=== PATIENT | male | born 1965 | race African-American/Black ===

== ENCOUNTER 2016-11-26 04:01 | Emergency (ER) | payer BC ==
[~2016-11-26] VITALS: Ht 177.8 cm; Wt 72.7 kg
[2016-11-26 04:01] VITALS: BP 170/103
[~2016-11-26 04:01] MED LIST: TRAZ100T15 PO
[2016-11-26] MEDS ORDERED: SODIUM CHLORIDE 0.9% 1,000ML IVBOLUS ONE ×2 (04:30→05:00)
[2016-11-26] MEDS ORDERED: SODIUM CHLORIDE FLUSH 10ML SYR IVF ONE (04:30)
[2016-11-26] MEDS ORDERED: MORPHINE SULFATE 4 MG/ML, 1ML ONE (04:40)
[2016-11-26] MEDS ORDERED: ONDANSETRON 2MG/ML, 2ML ONE (04:40)
[2016-11-26] MEDS ORDERED: THIAMINE 100MG TABLET ONE (04:58)
[2016-11-26] MEDS ORDERED: THIAMINE 100MG TABLET PO ONE (05:00)
[2016-11-26] MEDS ORDERED: ONDANSETRON 2MG/ML, 2ML IVPush ONE (05:00)
[2016-11-26] MEDS ORDERED: MORPHINE SULFATE 4 MG/ML, 1ML IVPush PRN (05:00)
[2016-11-26 05:01] LABS: BLOOD UREA NITROGEN 12 mg/dL (7-18)
[2016-11-26 05:05] LABS: ASPARTATE AMINO TRANSFERASE 288 U/L (15-37)
[2016-11-26] MEDS ORDERED: HYDROmorphone 1 MG/ML, 1ML ONE (06:15)
[2016-11-29 17:08] LABS: DIFF TOTAL CELLS COUNTED 100 CELL DIFF
[2016-11-29 17:09] LABS: LARGE PLATELETS 1+; VERIFY COUNTS? YES
== END 2016-11-26 06:00 ==
LOC: ED 04:51
DX: B17.9 Acute viral hepatitis, unspecified (principal); F10.280 Alcohol dependence with alcohol-induced anxiety disorder; F17.210 Nicotine dependence, cigarettes, uncomplicated
CPT/HCPCS: 36415; 80053; 83690; 85025; 96374; 99284; J2405; J7030

== ENCOUNTER 2017-06-25 23:51 | Emergency (ER) | payer BC ==
[~2017-06-25] VITALS: Ht 177.8 cm; Wt 76.9 kg
[2017-06-26] MEDS ORDERED: LORazepam 2 MG/ML, 1ML IVPush ONE (00:30)
[2017-06-26] MEDS ORDERED: FAMOTIDINE 20 MG/2 ML IVP ONE (00:30)
[2017-06-26] MEDS ORDERED: SODIUM CHLORIDE FLUSH 10ML SYR IVF ONE (00:30)
[2017-06-26] MEDS ORDERED: SODIUM CHLORIDE 0.9% 1,000ML IVBOLUS ONE (00:30)
[2017-06-26] MEDS ORDERED: ONDANSETRON 2MG/ML, 2ML IVPush ONE (00:30)
[2017-06-26 00:33] LABS: MEAN CORPUSCULAR HEMOGLOBIN 30.4 pg (27.5-34.5); MEAN CORPUSCULAR HGB CONC 34.6 g/dL (33.2-36.2); MEAN CORPUSCULAR VOLUME 87.7 fL (81-97); MEAN PLATELET VOLUME 10.4 fL (7.4-10.4); PLATELET COUNT 212 x10^3/uL (130-400); RED BLOOD COUNT 4.63 x10^6/uL (4.38-5.82); RED CELL DISTRIBUTION WIDTH 14.7 % (9.4-14.8)
[2017-06-26 00:39] LABS: ALBUMIN 2.7 g/dL (3.4-5.0); ANION GAP 14 mmol/L (5-15); CALCIUM 6.5 mg/dL (8.5-10.1); CHLORIDE 101 mmol/L (98-107); CREATININE 1.44 mg/dL (0.7-1.3)
[2017-06-26 00:48] LABS: ALKALINE PHOSPHATASE 114 U/L (45-117); BILIRUBIN,TOTAL 1.8 mg/dL (0.2-1.0)
[2017-06-26 00:49] LABS: MD YES
[2017-06-26 00:52] LABS: <PLATELET ESTIMATE> ADEQUATE; <RBC MORPHOLOGY> NORMAL; BASOS#(MANUAL) 0.08 x10^3/uL (0-0.1); BASOS% (MANUAL) 1 % (0-1); LARGE PLATELETS 1+; LYMPH#(MANUAL) 2.46 x10^3/uL (1-3.4); LYMPHS% (MANUAL) 30 % (22-44); MONOS#(MANUAL) 0.08 x10^3/uL (0.3-2.7); MONOS% (MANUAL) 1 % (2-9); SEG#(MANUAL) 5.58 x10^3/uL (1.8-6.8); SEGS% (MANUAL) 68 % (42-75)
[2017-06-26 01:40] LABS: ALANINE AMINOTRANSFERASE 191 U/L (12-78); TOTAL PROTEIN 7.2 g/dL (6.4-8.2)
[2017-06-26] MEDS ORDERED: ONDANSETRON 2MG/ML, 2ML ONE (04:02)
[2017-06-26] MEDS ORDERED: FAMOTIDINE 20 MG/2 ML ONE (04:03)
[2017-06-26] MEDS ORDERED: LORazepam 2 MG/ML, 1ML ONE (04:03)
[2017-06-26] MEDS ORDERED: HYDROmorphone 2 MG/ML, 1ML IVPush STA (04:23)
[2017-06-26] MEDS ORDERED: HYDROmorphone 2 MG/ML, 1ML ONE (04:26)
[2017-06-26 05:01] VITALS: BP 123/81
== END 2017-06-26 05:03 | disposition home or self-care (01) ==
LOC: ED 06-26 04:54
DX: K29.20 Alcoholic gastritis without bleeding (principal); Z72.9 Problem related to lifestyle, unspecified; I10 Essential (primary) hypertension; F19.10 Other psychoactive substance abuse, uncomplicated; I48.91 Unspecified atrial fibrillation; K85.90 Acute pancreatitis without necrosis or infection, unspecified
CPT/HCPCS: 36415; 80053; 83690; 85025; 93005; 96361; 96374; 96375; 99285; J1170; J2060; J2405; J7030; S0028

== ENCOUNTER 2017-07-18 06:48 | Emergency (ER) | payer BC ==
[~2017-07-18] VITALS: Ht 177.8 cm; Wt 72.1 kg
[2017-07-18] MEDS ORDERED: SODIUM CHLORIDE 0.9% 1,000 ML IV ONE (07:19)
[2017-07-18] MEDS ORDERED: FAMOTIDINE 20 MG/2 ML IVP ONE (07:30)
[2017-07-18] MEDS ORDERED: ONDANSETRON 2MG/ML, 2ML IVPush ONE (07:30)
[2017-07-18] MEDS ORDERED: SODIUM CHLORIDE 0.9% 1,000ML IVBOLUS ONE ×2 (07:30→11:00)
[2017-07-18] MEDS ORDERED: LORazepam 2 MG/ML, 1ML IVPush ONE (07:30)
[2017-07-18] MEDS ORDERED: SODIUM CHLORIDE FLUSH 10ML SYR IVF ONE (07:30)
[2017-07-18] MEDS ORDERED: ONDANSETRON 2MG/ML, 2ML ONE (08:05)
[2017-07-18] MEDS ORDERED: LORazepam 2 MG/ML, 1ML ONE (08:06)
[2017-07-18] MEDS ORDERED: FAMOTIDINE 20 MG/2 ML ONE (08:06)
[2017-07-18 08:45] LABS: ALBUMIN 2.6 g/dL (3.4-5.0); ANION GAP 22 mmol/L (5-15); CALCIUM 7.6 mg/dL (8.5-10.1); CHLORIDE 99 mmol/L (98-107); CREATININE 1.59 mg/dL (0.7-1.3)
[2017-07-18 08:48] LABS: ALKALINE PHOSPHATASE 219 U/L (45-117); BILIRUBIN,TOTAL 2.5 mg/dL (0.2-1.0); MEAN CORPUSCULAR HGB CONC 32.6 g/dL (33.2-36.2); MEAN CORPUSCULAR VOLUME 89.1 fL (81-97); MEAN PLATELET VOLUME 9.7 fL (7.4-10.4); PLATELET COUNT 170 x10^3/uL (130-400); RED BLOOD COUNT 4.68 x10^6/uL (4.38-5.82); RED CELL DISTRIBUTION WIDTH 15.9 % (9.4-14.8); TOTAL PROTEIN 6.9 g/dL (6.4-8.2)
[2017-07-18 08:51] LABS: ALANINE AMINOTRANSFERASE 372 U/L (12-78)
[2017-07-18 09:00] LABS: MD YES
[2017-07-18] MEDS ORDERED: DICYCLOMINE 10 MG/ML, 2ML IM ONE (09:00)
[2017-07-18 09:19] LABS: LYMPH#(MANUAL) 0.55 x10^3/uL (1-3.4); LYMPHS% (MANUAL) 7 % (22-44); MONOS#(MANUAL) 0.39 x10^3/uL (0.3-2.7); MONOS% (MANUAL) 5 % (2-9)
[2017-07-18 09:21] LABS: BASOS#(MANUAL) 0.08 x10^3/uL (0-0.1); BASOS% (MANUAL) 1 % (0-1); SEG#(MANUAL) 6.79 x10^3/uL (1.8-6.8); SEGS% (MANUAL) 87 % (42-75)
[2017-07-18 09:22] LABS: ANISOCYTOSIS 1+; PAPPENHEIMER BODIES 1+
[2017-07-18 09:23] LABS: <PLATELET ESTIMATE> ADEQUATE; <PLT MORPHOLOGY> NORMAL PLT MORPH
[2017-07-18] MEDS ORDERED: MAALOX/HYOSCYAMINE/LIDOCAINE 45 ML BTL PO ONE (10:00)
[2017-07-18] MEDS ORDERED: DICYCLOMINE 10 MG/ML, 2ML ONE (10:15)
[2017-07-18] MEDS ORDERED: MAALOX/HYOSCYAMINE/LIDOCAINE 45 ML BTL ONE (10:15)
[2017-07-18 11:39] VITALS: BP 123/83
== END 2017-07-18 11:59 | disposition home or self-care (01) ==
LOC: ED 07:25
DX: K80.20 Calculus of gallbladder without cholecystitis without obstruction (principal); K29.20 Alcoholic gastritis without bleeding; K70.9 Alcoholic liver disease, unspecified; E86.0 Dehydration; I10 Essential (primary) hypertension
CPT/HCPCS: 36415; 74022; 76700; 80053; 83690; 85025; 93005; 96361; 96372; 96374; 96375; 99285; J0500; J2060; J2405; J7030; S0028

== ENCOUNTER 2018-06-02 23:34 | Emergency (ER) | payer BC ==
[~2018-06-02] VITALS: Ht 177.8 cm; Wt 78.0 kg
[~2018-06-02 23:34] MED LIST changes: +TRAZ-137 PO; -TRAZ100T15 PO
[2018-06-03 04:55] VITALS: BP 124/77
[2018-06-11] MEDS ORDERED: MULT1TAB90 PO (00:45)
[2018-06-11] MEDS ORDERED: NALT50TA PO (00:45)
[2018-06-11] MEDS ORDERED: DULO60CA55 PO (00:45)
[2018-06-11] MEDS ORDERED: IBUP-1222 PO (00:45)
[2018-06-11] MEDS ORDERED: TRAZ-137 PO (00:45)
[2018-06-11] MEDS ORDERED: GABA300C10 PO (00:45)
[2018-06-11] MEDS ORDERED: INDO50CA5 PO (00:45)
[2018-06-11] MEDS ORDERED: HYDR50TA13 PO (00:45)
[2018-06-11] MEDS ORDERED: ALLO100T30 PO (00:45)
[2018-06-11] MEDS ORDERED: AMLO10TA6 PO (00:45)
== END 2018-06-03 05:53 | disposition home or self-care (01) ==
LOC: ED 23:47
DX: F32.9 Major depressive disorder, single episode, unspecified (principal); F10.129 Alcohol abuse with intoxication, unspecified; I10 Essential (primary) hypertension
CPT/HCPCS: 99284

== ENCOUNTER 2018-11-19 03:06 | Emergency (ER) | payer BC ==
[~2018-11-19] VITALS: Ht 177.8 cm; Wt 74.7 kg
[~2018-11-19 03:06] MED LIST changes: +ALLO100T30 PO; +AMLO10TA8 PO; +DULO60CA55 PO; +GABA300C10 PO; +HYDR50TA13 PO; +IBUP-1222 PO; +INDO50CA5 PO; +MULT1TAB90 PO; +NALT50TA PO
[2018-11-19] MEDS ORDERED: MORPHINE SULFATE 4 MG/ML, 1ML ONE (03:37)
[2018-11-19] MEDS ORDERED: SODIUM CHLORIDE 0.9% 1,000ML IVBOLUS ONE (04:00)
[2018-11-19] MEDS ORDERED: MORPHINE SULFATE 4 MG/ML, 1ML IVPush ONE (04:00)
[2018-11-19] MEDS ORDERED: SODIUM CHLORIDE FLUSH 10ML SYR IVF ONE (04:00)
--- NOTE | 2018-11-19 04:01 | NUR ---
Pt difficult iv stick per this rn attempting 2 times. EJ established via Antony foster.
[2018-11-19 04:22] VITALS: BP 121/91
--- NOTE | 2018-11-19 04:23 | NUR ---
Pt not tolerating ej and iv fluids not infusing. Aeju at bedside for US guided iv.
[2018-11-19 04:33] LABS: BASOPHILS # (AUTO) 0.03 x10^3/uL (0-0.1); BASOPHILS % (AUTO) 0 % (0-1); EOSINOPHILS # (AUTO) 0.01 x10^3/uL (0-0.4); EOSINOPHILS % (AUTO) 0 % (1-7); LYMPHOCYTES # (AUTO) 1.48 x10^3/uL (1-3.4); LYMPHOCYTES % (AUTO) 14 % (22-44); MD NO; MEAN CORPUSCULAR HGB CONC 32.8 g/dL (33.2-36.2); MEAN CORPUSCULAR VOLUME 82.5 fL (81-97); MEAN PLATELET VOLUME 10.1 fL (7.4-10.4); MONOCYTES % (AUTO) 2 % (2-9); NEUTROPHILS # (AUTO) 8.57 x10^3/uL (1.8-6.8); NEUTROPHILS % (AUTO) 83 % (42-75); PLATELET COUNT 137 x10^3/uL (130-400); RED BLOOD COUNT 6.25 x10^6/uL (4.38-5.82); RED CELL DISTRIBUTION WIDTH 14.4 % (9.4-14.8)
[2018-11-19 04:42] LABS: ALBUMIN 3.5 g/dL (3.4-5.0); ANION GAP 14 mmol/L (5-15); CALCIUM 8.2 mg/dL (8.5-10.1); CHLORIDE 104 mmol/L (98-107)
[2018-11-19 04:46] LABS: ALANINE AMINOTRANSFERASE 50 U/L (12-78); ALKALINE PHOSPHATASE 84 U/L (45-117); BILIRUBIN,TOTAL 0.9 mg/dL (0.2-1.0); TOTAL PROTEIN 7.7 g/dL (6.4-8.2)
--- NOTE | 2018-11-19 04:56 | NUR ---
Pt resting comfortably on gurney. Nadn. No immediate concerns. Call light within reach. Awaiting lab results.
== END 2018-11-19 05:26 | disposition home or self-care (01) ==
LOC: ED 05:12
DX: K86.0 Alcohol-induced chronic pancreatitis (principal); Z72.9 Problem related to lifestyle, unspecified; F10.20 Alcohol dependence, uncomplicated; I10 Essential (primary) hypertension; F17.210 Nicotine dependence, cigarettes, uncomplicated
CPT/HCPCS: 36415; 80053; 83690; 85025; 96361; 96374; 99283; J2270; J7030

== ENCOUNTER 2018-12-07 16:23 | Emergency (ER) | payer OTHER, BC ==
[~2018-12-07] VITALS: Ht 177.8 cm; Wt 50.0 kg
--- NOTE | 2018-12-07 16:34 | NUR ---
DAVID-Mark IS AT THE BEDSIDE FOR ASSESSMENT
[2018-12-07] MEDS ORDERED: ACETAMINOPHEN 325 MG TABLET ONE ×2 (16:41→16:44)
[2018-12-07] MEDS ORDERED: METHOCARBAMOL 750 MG TABLET ONE (16:44)
[2018-12-07] MEDS ORDERED: METHOCARBAMOL 750 MG TABLET PO ONE (17:00)
[2018-12-07] MEDS ORDERED: ACETAMINOPHEN 500 MG TABLET PO ONE (17:00)
[2018-12-07 17:34] VITALS: BP 167/98
== END 2018-12-07 17:46 | disposition home or self-care (01) ==
LOC: ED 16:42
DX: M25.552 Pain in left hip (principal); I10 Essential (primary) hypertension; F41.1 Generalized anxiety disorder; F32.9 Major depressive disorder, single episode, unspecified; Z72.89 Other problems related to lifestyle
CPT/HCPCS: 99283

== ENCOUNTER 2018-12-08 13:54 | Inpatient (IN) | payer BC, OTHER ==
[~2018-12-08] VITALS: Ht 175.3 cm; Wt 77.8 kg
[2018-12-08] MEDS ORDERED: ZIPRASIDONE 20 MG INJ IM ONE ×2 (14:41→15:00)
--- NOTE | 2018-12-08 14:41 | NUR ---
PT VERY TREMULOUS, CONTINUES TO TRY TO GET OUT OF GURNEY, PT FOUND WANDERING THE HALLS STAGGERING, ASSISTED BACK TO BED. PT NOW WITH SITTER IN ROOM. DARLEEN MADE AWARE, ORDERS RECEIVED FOR JESSICA.
--- NOTE | 2018-12-08 14:50 | NUR ---
MULTIPLE PROMPTS TO HAVE THE PATIENT MOVED TO BED. PATIENT REDIRECTABLE AND COOPERATIVE BUT NEEDS ALMOST IMMEDIATE REDIRECTION AND DOES NOT SEEM TO RETAIN INFORMATION.
[2018-12-08 15:24] LABS: ALBUMIN 3.7 g/dL (3.4-5.0); ANION GAP 12 mmol/L (5-15); CALCIUM 8.4 mg/dL (8.5-10.1); CHLORIDE 111 mmol/L (98-107)
[2018-12-08 15:28] LABS: ALANINE AMINOTRANSFERASE 60 U/L (12-78); ALKALINE PHOSPHATASE 73 U/L (45-117); BILIRUBIN,TOTAL 0.9 mg/dL (0.2-1.0); CREATININE 0.97 mg/dL (0.7-1.3); TOTAL PROTEIN 7.5 g/dL (6.4-8.2)
[2018-12-08 15:39] LABS: BASOPHILS # (AUTO) 0.02 x10^3/uL (0-0.1); BASOPHILS % (AUTO) 1 % (0-1); EOSINOPHILS # (AUTO) 0.02 x10^3/uL (0-0.4); EOSINOPHILS % (AUTO) 1 % (1-7); LYMPHOCYTES # (AUTO) 1.58 x10^3/uL (1-3.4); LYMPHOCYTES % (AUTO) 35 % (22-44); MD SCAN; MEAN CORPUSCULAR HEMOGLOBIN 26.5 pg (27.5-34.5); MEAN CORPUSCULAR HGB CONC 32.7 g/dL (33.2-36.2); MEAN PLATELET VOLUME 8.7 fL (7.4-10.4); MONOCYTES # (AUTO) 0.17 x10^3/uL (0.2-0.8); MONOCYTES % (AUTO) 4 % (2-9); NEUTROPHILS % (AUTO) 60 % (42-75); PLATELET COUNT 354 x10^3/uL (130-400); RED BLOOD COUNT 5.01 x10^6/uL (4.38-5.82); RED CELL DISTRIBUTION WIDTH 15.5 % (9.4-14.8)
--- NOTE | 2018-12-08 16:00 | NUR ---
PT MUCH CALMER, SITTER AT BEDSIDE. PT GIVEN MEAL TRAY, NO OTHER NEEDS
--- NOTE | 2018-12-08 16:22 | NUR ---
REPORT GIVEN TO SISI WILLIAMSON, MERCED.
[2018-12-08] MEDS ORDERED: ACETAMINOPHEN 325 MG TABLET PO PRN (17:30)
[2018-12-08] MEDS ORDERED: POLYETHYLENE GLYCOL 17 GM PACKET PO PRN (17:30)
[2018-12-08] MEDS ORDERED: LABETALOL 5 MG/ML SYRINGE IVPush PRN (17:30)
[2018-12-08] MEDS ORDERED: LORazepam 2 MG/ML, 1ML IVPush PRN (17:30)
[2018-12-08] MEDS ORDERED: BISACODYL 10 MG SUPP PR PRN (17:30)
[2018-12-08] MEDS ORDERED: ENALAPRILAT 1.25 MG/ML, 2ML IVPush PRN (17:30)
[2018-12-08] MEDS ORDERED: ONDANSETRON 2MG/ML, 2ML IVPush PRN (17:30)
[2018-12-08] MEDS ORDERED: ONDANSETRON ODT 4 MG PO PRN (17:30)
[2018-12-08] MEDS ORDERED: DOCUSATE 100 MG CAPSULE PO PRN (17:30)
[2018-12-08] MEDS: D5%-0.45NACL+KCL 20MEQ 1,000 ML IV SCH (18:00)
[2018-12-08] MEDS: ENOXAPARIN 40 MG/0.4 ML SQ SCH (18:13)
[2018-12-08] MEDS: NICOTINE 14MG/24 HR PATCH.TD24 TD SCH (18:16)
[2018-12-08] MEDS: THIAMINE 200 MG, MVI ADULT 10 ML, FOLIC ACID 1 MG in D5%-0.9% NACL 1,000 ML IV SCH (18:28)
[2018-12-08] MEDS: LIDODERM 5% PATCH TD SCH (18:34)
[2018-12-08 19:42] VITALS: BP 118/75
[2018-12-08] MEDS: FAMOTIDINE 20 MG TABLET PO SCH (21:00)
[2018-12-08 23:42] LABS: MICROSCOPIC AUTO
[2018-12-08 23:43] LABS: CULTURE INDICATED? NO
[2018-12-08 23:51] LABS: AMPHETAMINE SCREEN, URINE Negative (Negative); BARBITURATE SCREEN, URINE Negative (Negative); BENZODIAZEPINE SCREEN, URINE Negative (Negative); CANNABINOID SCREEN, URINE Negative (Negative); COCAINE SCREEN, URINE Negative (Negative); METHADONE SCREEN, URINE Negative (Negative); OPIATE SCREEN, URINE Negative (Negative)
[2018-12-09 01:54] VITALS: BP 149/83
[2018-12-09] MEDS: THIAMINE 200 MG, MVI ADULT 10 ML, FOLIC ACID 1 MG in D5%-0.9% NACL 1,000 ML IV SCH ×2 (02:06→12:21)
[2018-12-09] MEDS: D5%-0.45NACL+KCL 20MEQ 1,000 ML IV SCH ×2 (03:23→20:11)
[2018-12-09] MEDS: LORazepam 1MG TABLET PO PRN ×5 (03:34→20:36)
[2018-12-09 04:56] LABS: CLOSTRIDIUM DIFFICILE ANTIGEN POSITIVE; CLOSTRIDIUM DIFFICILE TOXIN NEGATIVE (Negative)
[2018-12-09 06:01] LABS: MEAN CORPUSCULAR HEMOGLOBIN 26.6 pg (27.5-34.5); MEAN CORPUSCULAR VOLUME 80.7 fL (81-97); MEAN PLATELET VOLUME 9.1 fL (7.4-10.4); PLATELET COUNT 237 x10^3/uL (130-400); RED BLOOD COUNT 4.16 x10^6/uL (4.38-5.82); RED CELL DISTRIBUTION WIDTH 15.8 % (9.4-14.8)
[2018-12-09 06:06] LABS: ALBUMIN 2.9 g/dL (3.4-5.0); ANION GAP 10 mmol/L (5-15); CALCIUM 7.4 mg/dL (8.5-10.1); CHLORIDE 109 mmol/L (98-107)
[2018-12-09 06:09] LABS: ALANINE AMINOTRANSFERASE 54 U/L (12-78); ALKALINE PHOSPHATASE 57 U/L (45-117); BILIRUBIN,TOTAL 0.9 mg/dL (0.2-1.0); CREATININE 0.86 mg/dL (0.7-1.3)
[2018-12-09 06:41] LABS: MD YES
[2018-12-09 06:44] LABS: LYMPH#(MANUAL) 1.68 x10^3/uL (1-3.4); LYMPHS% (MANUAL) 39 % (22-44); MONOS#(MANUAL) 0.04 x10^3/uL (0.3-2.7); MONOS% (MANUAL) 1 % (2-9); SEG#(MANUAL) 2.58 x10^3/uL (1.8-6.8); SEGS% (MANUAL) 60 % (42-75)
[2018-12-09 06:45] LABS: ANISOCYTOSIS 1+; HYPOCHROMIA 1+; TARGET CELLS 1+
[2018-12-09 06:47] LABS: <PLATELET ESTIMATE> ADEQUATE; <PLT MORPHOLOGY> NORMAL PLT MORPH
[2018-12-09] MEDS ORDERED: POTASSIUM CHLORIDE 40 MEQ in SODIUM CHLORIDE 0.9% 500 ML IV ONE (07:30)
[2018-12-09 08:15] VITALS: BP 153/89
[2018-12-09] MEDS: MAGNESIUM SULFATE PMX 2GM/50ML 50 ML IV SCH ×2 (08:31→10:17)
[2018-12-09] MEDS: FAMOTIDINE 20 MG TABLET PO SCH ×2 (10:17→20:10)
[2018-12-09 13:20] VITALS: BP 143/89
[2018-12-09] MEDS: KETOROLAC 30 MG/1 ML IV PRN ×2 (16:00→22:08)
[2018-12-09] MEDS: ENOXAPARIN 40 MG/0.4 ML SQ SCH (17:45)
[2018-12-09] MEDS: NICOTINE 14MG/24 HR PATCH.TD24 TD SCH (17:46)
[2018-12-09] MEDS: LIDODERM 5% PATCH TD SCH (17:47)
[2018-12-09 18:42] VITALS: BP 144/95
[2018-12-10] MEDS: LORazepam 1MG TABLET PO PRN ×3 (00:51→14:30)
[2018-12-10 01:11] VITALS: BP 161/92
[2018-12-10] MEDS: D5%-0.45NACL+KCL 20MEQ 1,000 ML IV SCH ×2 (04:30→12:00)
[2018-12-10] MEDS: KETOROLAC 30 MG/1 ML IV PRN ×3 (04:30→18:19)
[2018-12-10 06:12] LABS: BASOPHILS # (AUTO) 0.02 x10^3/uL (0-0.1); BASOPHILS % (AUTO) 0 % (0-1); EOSINOPHILS # (AUTO) 0.14 x10^3/uL (0-0.4); EOSINOPHILS % (AUTO) 3 % (1-7); LYMPHOCYTES # (AUTO) 1.18 x10^3/uL (1-3.4); LYMPHOCYTES % (AUTO) 24 % (22-44); MD NO; MEAN CORPUSCULAR HEMOGLOBIN 27.3 pg (27.5-34.5); MEAN CORPUSCULAR HGB CONC 33.2 g/dL (33.2-36.2); MEAN CORPUSCULAR VOLUME 82.3 fL (81-97); MEAN PLATELET VOLUME 9.8 fL (7.4-10.4); MONOCYTES # (AUTO) 0.28 x10^3/uL (0.2-0.8); MONOCYTES % (AUTO) 6 % (2-9); NEUTROPHILS # (AUTO) 3.28 x10^3/uL (1.8-6.8); NEUTROPHILS % (AUTO) 67 % (42-75); PLATELET COUNT 193 x10^3/uL (130-400); RED BLOOD COUNT 4.35 x10^6/uL (4.38-5.82)
[2018-12-10 06:25] LABS: CHLORIDE 104 mmol/L (98-107)
[2018-12-10 06:36] LABS: ALANINE AMINOTRANSFERASE 58 U/L (12-78); ALBUMIN 3.1 g/dL (3.4-5.0); ALKALINE PHOSPHATASE 76 U/L (45-117); ANION GAP 10 mmol/L (5-15); BILIRUBIN,TOTAL 0.8 mg/dL (0.2-1.0); CALCIUM 7.7 mg/dL (8.5-10.1); CREATININE 0.76 mg/dL (0.7-1.3); TOTAL PROTEIN 6.4 g/dL (6.4-8.2)
[2018-12-10] MEDS ORDERED: MAGNESIUM SULFATE PMX 4GM/100M 100 ML IV ONE (07:30)
[2018-12-10 07:36] LABS: SICKLE CELL SCREEN POSITIVE (NEGATIVE)
[2018-12-10 07:49] VITALS: BP 155/91
[2018-12-10] MEDS ORDERED: POTASSIUM CHLORIDE 20 MEQ TAB.ER.PRT PO SCH ×2 (08:00→17:00)
[2018-12-10] MEDS: DULOXETINE 30 MG CAPSULE.DR PO SCH (08:03)
[2018-12-10] MEDS: FAMOTIDINE 20 MG TABLET PO SCH ×2 (08:03→21:15)
[2018-12-10] MEDS: AMLODIPINE 10 MG TAB PO SCH (08:03)
[2018-12-10] MEDS ORDERED: LORazepam 1MG TABLET PO PRN ×3 (08:30)
[2018-12-10] MEDS ORDERED: LORazepam 2 MG/ML, 1ML IV PRN ×3 (08:30)
[2018-12-10] MEDS: GABAPENTIN 300 MG CAPSULE PO SCH ×3 (11:03→21:15)
[2018-12-10] MEDS: ALLOPURINOL 100 MG TABLET PO SCH (11:03)
[2018-12-10 12:05] VITALS: BP 129/79
[2018-12-10] MEDS: HYDROcodone/APAP 5/325 TABLET PO PRN ×2 (13:41→21:15)
[2018-12-10] MEDS: THIAMINE 200 MG, MVI ADULT 10 ML, FOLIC ACID 1 MG in D5%-0.9% NACL 1,000 ML IV SCH (13:41)
[2018-12-10] MEDS: LIDODERM 5% PATCH TD SCH (17:38)
[2018-12-10] MEDS: ENOXAPARIN 40 MG/0.4 ML SQ SCH (17:40)
[2018-12-10] MEDS: NICOTINE 14MG/24 HR PATCH.TD24 TD SCH (17:43)
[2018-12-10 19:25] VITALS: BP 146/88
[2018-12-10] MEDS: LORazepam 2 MG/ML, 1ML IV PRN (21:15)
[2018-12-11] MEDS: LORazepam 1MG TABLET PO PRN ×3 (00:09→21:23)
[2018-12-11 01:01] VITALS: BP 148/91
[2018-12-11] MEDS: KETOROLAC 30 MG/1 ML IV PRN ×3 (01:07→22:48)
[2018-12-11] MEDS: HYDROcodone/APAP 5/325 TABLET PO PRN ×4 (02:35→21:18)
[2018-12-11] MEDS: GABAPENTIN 300 MG CAPSULE PO SCH ×4 (05:36→21:18)
[2018-12-11 06:43] LABS: MEAN CORPUSCULAR HEMOGLOBIN 27.4 pg (27.5-34.5); MEAN CORPUSCULAR HGB CONC 33.2 g/dL (33.2-36.2); MEAN CORPUSCULAR VOLUME 82.4 fL (81-97); MEAN PLATELET VOLUME 10.7 fL (7.4-10.4); PLATELET COUNT 164 x10^3/uL (130-400); RED BLOOD COUNT 4.49 x10^6/uL (4.38-5.82); RED CELL DISTRIBUTION WIDTH 14.9 % (9.4-14.8)
[2018-12-11 06:53] LABS: BASOPHILS # (AUTO) 0.01 x10^3/uL (0-0.1); BASOPHILS % (AUTO) 0 % (0-1); EOSINOPHILS # (AUTO) 0.26 x10^3/uL (0-0.4); EOSINOPHILS % (AUTO) 5 % (1-7); LYMPHOCYTES # (AUTO) 1.35 x10^3/uL (1-3.4); LYMPHOCYTES % (AUTO) 28 % (22-44); MD SCAN; MONOCYTES # (AUTO) 0.24 x10^3/uL (0.2-0.8); MONOCYTES % (AUTO) 5 % (2-9); NEUTROPHILS # (AUTO) 3.04 x10^3/uL (1.8-6.8); NEUTROPHILS % (AUTO) 62 % (42-75)
[2018-12-11 07:22] LABS: ALBUMIN 3.1 g/dL (3.4-5.0); ANION GAP 9 mmol/L (5-15); CALCIUM 7.9 mg/dL (8.5-10.1); CHLORIDE 105 mmol/L (98-107)
[2018-12-11 07:26] LABS: ALANINE AMINOTRANSFERASE 66 U/L (12-78); ALKALINE PHOSPHATASE 74 U/L (45-117); BILIRUBIN,TOTAL 0.5 mg/dL (0.2-1.0); TOTAL PROTEIN 6.7 g/dL (6.4-8.2)
[2018-12-11 07:57] VITALS: BP 144/90
[2018-12-11] MEDS ORDERED: MAGNESIUM SULFATE PMX 2GM/50ML 50 ML IV ONE (08:00)
[2018-12-11] MEDS ORDERED: ESOMEPRAZOLE 40 MG IV IVPush SCH (08:00)
[2018-12-11] MEDS: FOLIC ACID 1 MG TABLET PO SCH (09:09)
[2018-12-11] MEDS: ESOMEPRAZOLE 40 MG IV IVPush SCH ×2 (09:09→21:18)
[2018-12-11] MEDS: AMLODIPINE 10 MG TAB PO SCH (09:10)
[2018-12-11] MEDS: ALLOPURINOL 100 MG TABLET PO SCH (09:10)
[2018-12-11] MEDS: DULOXETINE 30 MG CAPSULE.DR PO SCH (09:10)
[2018-12-11] MEDS: LORazepam 0.5MG TABLET PO PRN ×2 (12:14→16:42)
[2018-12-11] MEDS: METHOCARBAMOL 500 MG TABLET PO PRN (12:14)
[2018-12-11] MEDS: THIAMINE 200 MG, MVI ADULT 10 ML, FOLIC ACID 1 MG in D5%-0.9% NACL 1,000 ML IV SCH (13:40)
[2018-12-11 14:17] VITALS: BP 141/82
[2018-12-11] MEDS: LIDODERM 5% PATCH TD SCH (16:41)
[2018-12-11] MEDS: NICOTINE 14MG/24 HR PATCH.TD24 TD SCH (16:42)
[2018-12-11] MEDS: ENOXAPARIN 40 MG/0.4 ML SQ SCH (16:42)
[2018-12-11 18:40] VITALS: BP 116/78
[2018-12-12 01:57] VITALS: BP 157/92
[2018-12-12] MEDS: HYDROcodone/APAP 5/325 TABLET PO PRN ×3 (02:06→13:19)
[2018-12-12] MEDS: LORazepam 1MG TABLET PO PRN (02:06)
[2018-12-12] MEDS: GABAPENTIN 300 MG CAPSULE PO SCH ×4 (06:00→20:35)
[2018-12-12] MEDS: LORazepam 2 MG/ML, 1ML IV PRN (06:00)
[2018-12-12 06:58] LABS: BASOPHILS # (AUTO) 0.01 x10^3/uL (0-0.1); BASOPHILS % (AUTO) 0 % (0-1); EOSINOPHILS # (AUTO) 0.14 x10^3/uL (0-0.4); EOSINOPHILS % (AUTO) 3 % (1-7); LYMPHOCYTES # (AUTO) 1.12 x10^3/uL (1-3.4); LYMPHOCYTES % (AUTO) 22 % (22-44); MD NO; MEAN CORPUSCULAR HEMOGLOBIN 27.2 pg (27.5-34.5); MEAN CORPUSCULAR HGB CONC 32.5 g/dL (33.2-36.2); MEAN CORPUSCULAR VOLUME 83.8 fL (81-97); MEAN PLATELET VOLUME 9.8 fL (7.4-10.4); MONOCYTES # (AUTO) 0.19 x10^3/uL (0.2-0.8); MONOCYTES % (AUTO) 4 % (2-9); NEUTROPHILS # (AUTO) 3.73 x10^3/uL (1.8-6.8); NEUTROPHILS % (AUTO) 72 % (42-75); PLATELET COUNT 154 x10^3/uL (130-400); RED BLOOD COUNT 4.44 x10^6/uL (4.38-5.82); RED CELL DISTRIBUTION WIDTH 15.7 % (9.4-14.8)
[2018-12-12 07:08] LABS: ANION GAP 7 mmol/L (5-15); CALCIUM 7.9 mg/dL (8.5-10.1); CHLORIDE 106 mmol/L (98-107)
[2018-12-12 07:13] LABS: ALANINE AMINOTRANSFERASE 81 U/L (12-78); ALKALINE PHOSPHATASE 69 U/L (45-117); BILIRUBIN,TOTAL 0.8 mg/dL (0.2-1.0); TOTAL PROTEIN 6.5 g/dL (6.4-8.2)
[2018-12-12 07:40] VITALS: BP 137/74
[2018-12-12] MEDS ORDERED: MAGNESIUM SULFATE 3 GM in SODIUM CHLORIDE 0.9% 100 ML IV ONE (08:00)
[2018-12-12] MEDS: KETOROLAC 30 MG/1 ML IV PRN ×2 (08:44→17:24)
[2018-12-12] MEDS: AMLODIPINE 10 MG TAB PO SCH (08:44)
[2018-12-12] MEDS: ESOMEPRAZOLE 40 MG IV IVPush SCH (08:44)
[2018-12-12] MEDS: DULOXETINE 30 MG CAPSULE.DR PO SCH (08:45)
[2018-12-12] MEDS: ALLOPURINOL 100 MG TABLET PO SCH (08:45)
[2018-12-12] MEDS: FOLIC ACID 1 MG TABLET PO SCH (08:45)
[2018-12-12] MEDS: LORazepam 0.5MG TABLET PO PRN ×2 (13:19→20:34)
[2018-12-12] MEDS: THIAMINE 200 MG, MVI ADULT 10 ML, FOLIC ACID 1 MG in D5%-0.9% NACL 1,000 ML IV SCH (13:19)
[2018-12-12 14:00] VITALS: BP 158/82
[2018-12-12] MEDS: PANTOPROZOLE 40MG TABLET PO SCH (17:24)
[2018-12-12] MEDS: ENOXAPARIN 40 MG/0.4 ML SQ SCH (17:25)
[2018-12-12] MEDS: NICOTINE 14MG/24 HR PATCH.TD24 TD SCH (17:25)
[2018-12-12] MEDS: LIDODERM 5% PATCH TD SCH (17:26)
[2018-12-12 19:50] VITALS: BP 127/82
[2018-12-12] MEDS: METHOCARBAMOL 500 MG TABLET PO PRN (20:35)
[2018-12-13 01:13] VITALS: BP 146/92
[2018-12-13] MEDS: HYDROcodone/APAP 5/325 TABLET PO PRN ×2 (01:43→20:57)
[2018-12-13] MEDS: LORazepam 0.5MG TABLET PO PRN ×3 (02:07→20:37)
[2018-12-13] MEDS: GABAPENTIN 300 MG CAPSULE PO SCH ×4 (05:53→20:57)
[2018-12-13] MEDS: PANTOPROZOLE 40MG TABLET PO SCH ×2 (05:57→18:41)
[2018-12-13 08:15] VITALS: BP 124/74
[2018-12-13] MEDS: AMLODIPINE 10 MG TAB PO SCH (08:48)
[2018-12-13] MEDS: ALLOPURINOL 100 MG TABLET PO SCH (08:48)
[2018-12-13] MEDS: DULOXETINE 30 MG CAPSULE.DR PO SCH (08:48)
[2018-12-13] MEDS: FOLIC ACID 1 MG TABLET PO SCH (08:48)
[2018-12-13] MEDS: KETOROLAC 30 MG/1 ML IV PRN (09:05)
[2018-12-13 09:28] LABS: ANION GAP 6 mmol/L (5-15); CALCIUM 8.2 mg/dL (8.5-10.1); CHLORIDE 106 mmol/L (98-107); CREATININE 0.76 mg/dL (0.7-1.3)
[2018-12-13 10:49] LABS: BASOPHILS # (AUTO) 0.02 x10^3/uL (0-0.1); BASOPHILS % (AUTO) 0 % (0-1); EOSINOPHILS # (AUTO) 0.13 x10^3/uL (0-0.4); EOSINOPHILS % (AUTO) 2 % (1-7); LYMPHOCYTES # (AUTO) 1.24 x10^3/uL (1-3.4); LYMPHOCYTES % (AUTO) 17 % (22-44); MD NO; MEAN CORPUSCULAR HEMOGLOBIN 26.7 pg (27.5-34.5); MEAN CORPUSCULAR HGB CONC 32.2 g/dL (33.2-36.2); MEAN CORPUSCULAR VOLUME 82.7 fL (81-97); MEAN PLATELET VOLUME 9.3 fL (7.4-10.4); MONOCYTES # (AUTO) 0.67 x10^3/uL (0.2-0.8); MONOCYTES % (AUTO) 9 % (2-9); NEUTROPHILS # (AUTO) 5.14 x10^3/uL (1.8-6.8); NEUTROPHILS % (AUTO) 72 % (42-75); PLATELET COUNT 152 x10^3/uL (130-400); RED BLOOD COUNT 4.26 x10^6/uL (4.38-5.82); RED CELL DISTRIBUTION WIDTH 15.8 % (9.4-14.8)
[2018-12-13] MEDS ORDERED: MAGNESIUM SULFATE 4 GM in SODIUM CHLORIDE 0.9% 100 ML IV ONE (11:00)
[2018-12-13] MEDS: THIAMINE 200 MG, MVI ADULT 10 ML, FOLIC ACID 1 MG in D5%-0.9% NACL 1,000 ML IV SCH (18:34)
[2018-12-13] MEDS: ENOXAPARIN 40 MG/0.4 ML SQ SCH (18:41)
[2018-12-13] MEDS: NICOTINE 14MG/24 HR PATCH.TD24 TD SCH (18:42)
[2018-12-13] MEDS: LIDODERM 5% PATCH TD SCH (18:42)
[2018-12-13 19:59] VITALS: BP 127/80
[2018-12-14 00:37] VITALS: BP 121/76
[2018-12-14] MEDS: LORazepam 0.5MG TABLET PO PRN (04:41)
[2018-12-14 05:30] LABS: BASOPHILS # (AUTO) 0.03 x10^3/uL (0-0.1); BASOPHILS % (AUTO) 1 % (0-1); EOSINOPHILS # (AUTO) 0.11 x10^3/uL (0-0.4); EOSINOPHILS % (AUTO) 2 % (1-7); LYMPHOCYTES # (AUTO) 1.47 x10^3/uL (1-3.4); LYMPHOCYTES % (AUTO) 28 % (22-44); MD NO; MEAN CORPUSCULAR HEMOGLOBIN 27.4 pg (27.5-34.5); MEAN CORPUSCULAR HGB CONC 32.7 g/dL (33.2-36.2); MEAN CORPUSCULAR VOLUME 83.7 fL (81-97); MEAN PLATELET VOLUME 9.6 fL (7.4-10.4); MONOCYTES # (AUTO) 0.66 x10^3/uL (0.2-0.8); MONOCYTES % (AUTO) 12 % (2-9); NEUTROPHILS # (AUTO) 3.09 x10^3/uL (1.8-6.8); NEUTROPHILS % (AUTO) 58 % (42-75); PLATELET COUNT 151 x10^3/uL (130-400); RED BLOOD COUNT 4.26 x10^6/uL (4.38-5.82); RED CELL DISTRIBUTION WIDTH 16.5 % (9.4-14.8)
[2018-12-14 05:43] LABS: ANION GAP 8 mmol/L (5-15); CHLORIDE 109 mmol/L (98-107)
[2018-12-14 05:44] LABS: CREATININE 0.78 mg/dL (0.7-1.3)
[2018-12-14] MEDS: PANTOPROZOLE 40MG TABLET PO SCH (06:05)
[2018-12-14] MEDS: GABAPENTIN 300 MG CAPSULE PO SCH ×2 (06:05→11:53)
[2018-12-14] MEDS ORDERED: MAGNESIUM SULFATE PMX 2GM/50ML 50 ML IV ONE (08:00)
[2018-12-14] MEDS: THIAMINE 100MG TABLET PO SCH ×2 (08:11→09:00)
[2018-12-14] MEDS: ALLOPURINOL 100 MG TABLET PO SCH (08:12)
[2018-12-14] MEDS: FOLIC ACID 1 MG TABLET PO SCH (08:12)
[2018-12-14] MEDS: DULOXETINE 30 MG CAPSULE.DR PO SCH (08:12)
[2018-12-14] MEDS: AMLODIPINE 10 MG TAB PO SCH (08:12)
[2018-12-14 08:33] VITALS: BP 131/82
[2018-12-14] MEDS: HYDROcodone/APAP 5/325 TABLET PO PRN (08:44)
[2018-12-14] MEDS ORDERED: PANT40TA5 PO (13:29)
[2018-12-14] MEDS ORDERED: METH500T7 PO (13:29)
[2018-12-14] MEDS ORDERED: THIA100T67 PO (13:29)
[2018-12-14 14:00] VITALS: BP 123/77
== END 2018-12-14 15:44 | disposition home or self-care (01) | DRG 554 ==
LOC: ED 15:39 → 3NE 15:40 → ED 15:47
PROVIDERS: ADMIT Internal Medicine; ATTEND Internal Medicine
DX: M87.9 Osteonecrosis, unspecified (principal); F10.239 Alcohol dependence with withdrawal, unspecified; R25.1 Tremor, unspecified; F32.9 Major depressive disorder, single episode, unspecified; Z91.018 Allergy to other foods; D50.9 Iron deficiency anemia, unspecified; E83.42 Hypomagnesemia; E87.6 Hypokalemia; F17.210 Nicotine dependence, cigarettes, uncomplicated; Z90.81 Acquired absence of spleen; Z83.3 Family history of diabetes mellitus; M10.9 Gout, unspecified; K70.9 Alcoholic liver disease, unspecified; I10 Essential (primary) hypertension; F41.1 Generalized anxiety disorder; R73.9 Hyperglycemia, unspecified
CPT/HCPCS: 36415; 73502; 87806; J7042; 80048; 80053; 80307; 81001; 82306; 82533; 82728; 83540; 83550; 83735; 84100; 84466; 84550; 85025; 85660; 87324; 87493; G0378; J1650; J1885; J2405; J3411; J3475; J3480; J3486; G0475; J2060; J7040

== ENCOUNTER 2018-12-20 17:49 | Emergency (ER) | payer BC, OTHER ==
[~2018-12-20] VITALS: Ht 177.8 cm; Wt 84.0 kg
[~2018-12-20 17:49] MED LIST changes: +METH500T7 PO; +PANT40TA5 PO; +THIA100T67 PO
[2018-12-20 17:50] VITALS: BP 134/84
--- NOTE | 2018-12-20 18:25 | NUR ---
PT BIB ALFONSO FROM HIS APARTMENT IN [place] AFTER DRINKING APPROXIMATELY 60 BOTTLES OF 99 BANANAS PER [facility]. PT A+O X 2 BUT RESTLESS AND CONTINUOUSLY ATTEMPTING TO GET OUT OF BED. PT DOES NOT REPLY WHEN ASKED IF HE NEEDS ANYTHING. PT MOVED FROM ROOM 31 TO 40 SO PT CAN BE WATCHED BY SITTER MORE READILY.
--- NOTE | 2018-12-20 18:29 | NUR ---
received bedside report from TERI Paula. assuming pt care at this time. EDTA sitting bedside with pt. pt continually trying to get out of bed.
--- NOTE | 2018-12-20 18:59 | NUR ---
BEDSIDE REPORT TO TERI MEJIA
--- NOTE | 2018-12-20 19:00 | NUR ---
REPORT RECEIVED, POC DISCUSSED, CARE ASSUMED. PT RESTLESS AND ATTEMPTING TO GET OUT OF GURNEY, SITTER AT SIDE FOR PT SAFETY. `
--- NOTE | 2018-12-20 20:30 | NUR ---
NO CHANGE IN PT. PT REMAINS RESTLESS AND FIGDITY. REFUSING TO USE BSC. ATTEMPTED TO EXPLAIN TO PT WAS TOO UNSTEADY TO AMBULATE TO BR. PT NOT COMPREHENDING. PT JUST STATES "DRANK TOO MUCH". DENIES OTHER DRUG USE.
--- NOTE | 2018-12-20 20:58 | NUR ---
PT UP TO USE BSC, SLIGHTLY UNSTEADY ON FEET BUT ABLE TO TRANSFER FROM [facility] TO [facility] WITHOUT ASSIST. HAD SMALL LOOSE BM.
--- NOTE | 2018-12-20 21:35 | NUR ---
NO CHANGE IN PT CONDITION. PT DOES APPEAR TO BE MORE CALM, SITTER AT BEDSIDE FOR PT SAFETY. WILL CONTINUE TO MONITOR.
--- NOTE | 2018-12-20 22:08 | NUR ---
PT DC'D HOME WITH UNDERSTANDING OF INSTRUCTIONS. PT AMBULATED TO DC WITHOUT DIFFICULTY.
== END 2018-12-20 22:10 | disposition home or self-care (01) ==
LOC: ED 21:32
DX: F10.120 Alcohol abuse with intoxication, uncomplicated (principal); I10 Essential (primary) hypertension; Z72.9 Problem related to lifestyle, unspecified; Y90.9 Presence of alcohol in blood, level not specified
CPT/HCPCS: 99283

== ENCOUNTER 2018-12-21 12:33 | Emergency (ER) | payer BC, OTHER ==
[~2018-12-21] VITALS: Ht 175.3 cm; Wt 81.0 kg
[2018-12-21 12:48] VITALS: BP 106/59
--- NOTE | 2018-12-21 12:57 | NUR ---
BIB BY ALFONSO FROM HOME FOR "TOO MUCH ALCOHOL". ALFONSO REPORTS HOME FULL OF EMPTY VODKA BOTTLES & NO FOOD. THEREFORE ALFONSO CALLED THE ONLINE MARKETING STRATEGIST OFFICE FOR FAILURE TO THRIVE TO PLACE PATIENT ON A HOLD. EMS BREATHALYZER OF 338. ON ARRIVAL HR 120, APPEARS INTOXICATED BUT AGREEABLE. PLACED ON MANAGER FARM ROOM ONLY PARTIALLY SECURED PT NEEDS MONITOR SITTER AT BEDSIDE LEGAL HOLD PAPERWORK PLACED ON CHART
--- NOTE | 2018-12-21 13:34 | NUR ---
PLAN CLARIFIED WITH PROVIDER: METABOLIZE ETOH UNTIL CLINICALLY SOBER WHEN HE CAN BE RE-ASSESSED FOR SI/HI/FAILURE TO THRIVE. [facility] INITIATED LEGAL HOLD-PATIENT WITH 1:1 SITTER AT DOORWAY HR NOW 100, RESTING COMFORTABLY ON GURNEY WITH NO COMPLAINTS. PROVIDED WITH ADDITIONAL BLANKET & BOTTLE OF WATER
--- NOTE | 2018-12-21 15:02 | NUR ---
REPORT TO ELLIE WILLIAMSON PATIENT CONTINUES TO REST COMFORTABLY ON GURNEY TAKING WATER W/OUT DIFFICULTY ROOM SECURED AT THIS TIME (psych doors down) VITALS IMPROVED
--- NOTE | 2018-12-21 15:26 | NUR ---
PT SLEEPING IN [facility]. SITTER MONITORING FROM [facility]
--- NOTE | 2018-12-21 16:30 | NUR ---
PT WALKED TO BATHROOM WITH STANDBY ASSIST. PT TOLERATED WELL WITH SHUFFLING GAIT. PT ESCORTED BACK TO ROOM. PT DENIES FURTHER NEEDS AT THIS TIME. SITTER MONITORING FROM [facility] SAFET[facility].
--- NOTE | 2018-12-21 17:36 | NUR ---
PT PROVIDED WITH SUBSTANCE ABUSE AND COMMUNITY RESOURCES. REFUSES SW CONSULT AT THIS TIME. PT PERSISTENT REQUEST TO LEAVE. AWARE. PT PROVIDED WITH FL PAPERWORK AND TAXI VOUCHER. PT ESCORTED TO FL DESK. PT STEADY GAIT AND AMBULATORY.
== END 2018-12-21 17:47 | disposition home or self-care (01) ==
LOC: ED 17:41
DX: F10.220 Alcohol dependence with intoxication, uncomplicated (principal); I10 Essential (primary) hypertension; F32.9 Major depressive disorder, single episode, unspecified; Z72.9 Problem related to lifestyle, unspecified
CPT/HCPCS: 99283

== ENCOUNTER 2019-04-28 09:26 | Emergency (ER) | payer BC ==
[~2019-04-28] VITALS: Ht 177.8 cm; Wt 66.8 kg
[~2019-04-28 09:26] MED LIST changes: +ACET-1600 PO; +ACET325T26 PO; +ACID1TAB7 PO; +APIX5TAB PO; +CARV3.1212 PO; +CEFD300C37 PO; +DOCU-131 PO; -DULO60CA55 PO; +DULO60CA56 PO; +FERR-51 PO; +INDO50CA15 PO; -INDO50CA5 PO; +LISI5TAB7 PO; +METF500T17 PO; +NICO-485 TD; +PIPE4.5V3 IV; +SIME125T PO
--- NOTE | 2019-04-28 09:44 | NUR ---
SWITCH ADJUSTER: PT AMBULATORY TO ROOM FROM LOBBY
--- NOTE | 2019-04-28 09:57 | NUR ---
PT TO ED FOR BUQ AND EPIGASTRIC PAIN SINCE YESTERDAY. PT STATES [facility]. PT REPORTS TAKING 6 "MINI BOTTLE" SHOTS LAST NIGHT AND 3 THIS MORNING IN ATTEMPT TO RELIEVE PAIN. PT REPORTS NO DECREASE IN PAIN AFTER ETOH. PT ALSO ENDORSES NAUSEA THIS AM WITH 2 EPISODES OF VOMITING TODAY. PT DENIES NAUSEA AT THIS TIME. PT CONNECTED TO ALL MONITORS. TACHY, ALL OTHER VSS ON RA. TASK RN TO BS TO START PIV AND DRAW LABS AT THIS TIME. AWAITING EDMD ASSESSMENT.
[2019-04-28] MEDS ORDERED: PANTOPRAZOLE 40 MG IV ONE (10:30)
[2019-04-28] MEDS ORDERED: PROMETHAZINE 25 MG/ML, 1ML IM ONE (10:30)
[2019-04-28] MEDS ORDERED: PANTOPRAZOLE 40 MG IV IVPush SCH (10:30)
[2019-04-28] MEDS ORDERED: PROMETHAZINE 25 MG/ML, 1ML ONE (10:30)
[2019-04-28] MEDS ORDERED: FAMOTIDINE 20 MG/2 ML ONE (10:30)
[2019-04-28] MEDS ORDERED: SODIUM CHLORIDE 0.9% 1,000ML IVBOLUS ONE (10:30)
[2019-04-28] MEDS ORDERED: FAMOTIDINE 20 MG/2 ML IV ONE (10:30)
[2019-04-28] MEDS ORDERED: SODIUM CHLORIDE FLUSH 10ML SYR IVF ONE (10:30)
--- NOTE | 2019-04-28 10:45 | NUR ---
PIV ESTABLISHED AND LABS DRAWN. PT MEDICATED PER MAR. IVF BOLUS STARTED. VSS. AWAITING LAB RESUTLS.
--- NOTE | 2019-04-28 11:30 | NUR ---
PER PT, OK TO GIVE DAO GARCIA INFO OVER PHONE. HIS NUMBER IS .
--- NOTE | 2019-04-28 11:32 | NUR ---
PT RESTING IN ROOM. VSS. IVF BOLUS COMPLETE. NO NEEDS EXPRESSED. CALL LIGHT WITHIN REACH. AWAITING LAB RESUTLS.
[2019-04-28 11:44] LABS: ANION GAP 11 mmol/L (5-15); CALCIUM 8.1 mg/dL (8.5-10.1); CHLORIDE 111 mmol/L (98-107)
[2019-04-28 11:45] LABS: MEAN CORPUSCULAR HEMOGLOBIN 26.1 pg (27.5-34.5); MEAN CORPUSCULAR HGB CONC 31.8 g/dL (33.2-36.2); MEAN PLATELET VOLUME 9.9 fL (7.4-10.4); PLATELET COUNT 218 x10^3/uL (130-400); RED BLOOD COUNT 3.89 x10^6/uL (4.38-5.82); RED CELL DISTRIBUTION WIDTH 22.6 % (9.4-14.8)
[2019-04-28 11:47] LABS: ALANINE AMINOTRANSFERASE 27 U/L (12-78); ALKALINE PHOSPHATASE 86 U/L (45-117); BILIRUBIN,TOTAL 0.1 mg/dL (0.2-1.0); CREATININE 0.87 mg/dL (0.7-1.3); TOTAL PROTEIN 7.1 g/dL (6.4-8.2)
[2019-04-28 12:07] LABS: BASOPHILS # (AUTO) 0.01 x10^3/uL (0-0.1); BASOPHILS % (AUTO) 0 % (0-1); EOSINOPHILS # (AUTO) 0.05 x10^3/uL (0-0.4); EOSINOPHILS % (AUTO) 1 % (1-7); LYMPHOCYTES # (AUTO) 1.46 x10^3/uL (1-3.4); LYMPHOCYTES % (AUTO) 38 % (22-44); MD SCAN; MONOCYTES % (AUTO) 5 % (2-9); NEUTROPHILS % (AUTO) 55 % (42-75)
--- NOTE | 2019-04-28 12:08 | NUR ---
all results back at this time. chart up for recheck.
--- NOTE | 2019-04-28 12:43 | NUR ---
pt resting in room with eyes closed. vss. no needs expressed. call light within reach. awaiting ct.
--- NOTE | 2019-04-28 13:02 | NUR ---
pt to and from ct with this rn. pt tolerated well. no needs expressed. call light within reach. awaiting results.
[2019-04-28] MEDS ORDERED: OMNIPAQUE 350 MG/ML, 100ML BOTTLE ONE (13:07)
[2019-04-28] MEDS ORDERED: DICYCLOMINE 10 MG/ML, 2ML IM ONE (13:30)
[2019-04-28] MEDS ORDERED: KETOROLAC 30 MG/1 ML IVPush ONE (13:30)
[2019-04-28] MEDS ORDERED: KETOROLAC 30 MG/1 ML ONE (13:38)
[2019-04-28] MEDS ORDERED: DICYCLOMINE 10 MG/ML, 2ML ONE (13:38)
[2019-04-28 13:42] VITALS: BP 124/79
--- NOTE | 2019-04-28 13:42 | NUR ---
ALL RESULTS BACK AT THIS TIME. CHART UP FOR RECHECK.
== END 2019-04-28 14:22 | disposition home or self-care (01) ==
LOC: ED 13:10
DX: R10.13 Epigastric pain (principal); F10.220 Alcohol dependence with intoxication, uncomplicated; D64.9 Anemia, unspecified; R11.2 Nausea with vomiting, unspecified; F41.1 Generalized anxiety disorder; F32.9 Major depressive disorder, single episode, unspecified; Z90.49 Acquired absence of other specified parts of digestive tract
CPT/HCPCS: 36415; 74177; 80053; 80307; 83690; 83735; 85025; 96361; 96372; 96374; 96375; 99284; C9113; J0500; J1885; J2550; J3490; J7030; Q9967